=== PATIENT | male | born 1950 | race Caucasian/White ===

== ENCOUNTER 2016-11-03 06:23 | Day surgery (SDC) | payer BC, OTHER ==
[~2016-11-03] VITALS: Ht 167.6 cm; Wt 68.9 kg
[~2016-11-03 06:23] MED LIST: LISINOPRIL10 MG PO; MEVACOR40 MG PO; MOTRIN800 MG PO
[2016-11-03 06:59] VITALS: BP 147/90
[2016-11-03 13:07] VITALS: BP 160/90
[2016-11-03 14:20] VITALS: BP 136/84
== END 2016-11-03 14:45 | disposition home or self-care (01) ==
LOC: SDC 06:23
DX: J32.9 Chronic sinusitis, unspecified (principal); J33.8 Other polyp of sinus; J33.0 Polyp of nasal cavity; J34.2 Deviated nasal septum; I10 Essential (primary) hypertension
CPT/HCPCS: 88305; J0330; J0690; J2405; J3010; J3301; J7050